=== PATIENT | male | born 2000 | race Caucasian/White ===

== ENCOUNTER 2018-03-14 13:56 | Emergency (ER) | payer OTHER ==
[~2018-03-14] VITALS: Ht 188 cm; Wt 81.8 kg
[2018-03-14] MEDS ORDERED: AUGMENTIN 875 MG TAB PO ONE (15:30)
[2018-03-14 15:39] VITALS: BP 131/74
[2018-03-14] MEDS ORDERED: AUGM875T28 PO (15:55)
== END 2018-03-14 15:59 | disposition home or self-care (01) ==
LOC: M ED 13:56
DX: H66.002 Acute suppurative otitis media without spontaneous rupture of ear drum, left ear (principal)